=== PATIENT | female | born 1935 | race Caucasian/White ===

== ENCOUNTER 2019-09-27 12:32 | Emergency (ER) | payer MEDICARE ==
[~2019-09-27] VITALS: Ht 157.5 cm; Wt 74.8 kg
[2019-09-27 12:34] VITALS: BP_SYST 103
--- NOTE | 2019-09-27 12:35 | NUR ---
Patient to ER bed 4 to gown for evaluation. Side rails up.
--- NOTE | 2019-09-27 12:40 | NUR ---
Pt bib ambulance from home, per son pt was c/o back pain and cramping. Pt is confused but alert and oriented. V/S stable, afebrile. Resting in bed, will continue to monitor.
[2019-09-27] MEDS ORDERED: traMADol HCL HCL 50 MG TABLET (ULTRAM) PO ONE (13:00)
--- NOTE | 2019-09-27 13:09 | NUR ---
Pt medicated with tramadol as ordered, will re-assess
--- NOTE | 2019-09-27 13:15 | NUR ---
# 20 gauge angiocath placed to LFA. Use of asceptic technique. Opsite placed over site. Blood return noted. Blood for lab drawn from site. Flushed with 10 cc of normal saline. No evidence of infiltration noted. Patient tolerated well.
[2019-09-27] MEDS ORDERED: FENO160 PO (13:19)
[2019-09-27] MEDS ORDERED: [UNRECOGNIZED DRUG - OTHER] (13:19)
[2019-09-27] MEDS ORDERED: FOLI-43 PO (13:19)
[2019-09-27] MEDS ORDERED: LISI-600 PO (13:19)
[2019-09-27] MEDS ORDERED: PHOS100P3 MC (13:21)
[2019-09-27] MEDS ORDERED: TRAN650T5 PO (13:21)
--- NOTE | 2019-09-27 13:21 | NUR ---
Medication reconciliation completed with information provided by son. Any prior medication reconciliation on file was reviewed and corrected.
--- NOTE | 2019-09-27 13:30 | NUR ---
Radiology at bedside to perform cxr
[2019-09-27 13:31] LABS: BASOPHILS # (AUTO) 0.1 K/uL (0.0-0.2); BASOPHILS % (AUTO) 0.6 % (0.0-2.0); EOSINOPHILS # (AUTO) 0.2 K/uL (0.0-0.4); EOSINOPHILS % (AUTO) 1.7 % (0.0-4.0); HEMATOCRIT 36.8 % (36-48); LYMPHOCYTES % (AUTO) 20.5 % (20.5-51.5); MEAN CORPUSCULAR HEMOGLOBIN 28 pg (27-31); MEAN CORPUSCULAR HGB CONC 33 % (32-36); MEAN CORPUSCULAR VOLUME 87 fL (79.0-98.0); MONOCYTES # (AUTO) 0.8 K/uL (0.0-1.0); MONOCYTES % (AUTO) 8.1 % (1.7-9.3); NEUTROPHILS # (AUTO) 6.7 K/uL (1.8-7.7); NEUTROPHILS % (AUTO) 69.1 % (40.0-70.0); PLATELET COUNT (AUTO) 274 K/uL (130-430); RED BLOOD CELL COUNT(AUTO) 4.24 MIL/uL (4.2-6.2); RED CELL DISTRIBUTION WIDTH 15.1 % (9.0-15.0); WHITE BLOOD COUNT (AUTO) 9.6 K/uL (4.8-10.8)
[2019-09-27 13:57] LABS: ANION GAP 9 (5-15); CALCIUM 8.6 mg/dL (8.4-11.0); CHLORIDE 98 mmol/L (98-107); CREATININE 1.68 mg/dL (0.55-1.30); GLUCOSE 107 mg/dL (70-99); SODIUM SERUM 128 mmol/L (136-145); UREA NITROGEN, BLOOD 33 mg/dL (8-21)
[2019-09-27 14:02] LABS: ALANINE AMINOTRANSFERASE 25 U/L (12-78); ALBUMIN 3.2 g/dL (3.4-4.8); ASPARTATE AMINOTRANSFERASE 36 U/L (10-37); LIPASE 689 U/L (73-393); TOTAL BILIRUBIN 0.3 mg/dL (0.0-1.0)
--- NOTE | 2019-09-27 14:04 | NUR ---
Patient transported to radiology via GURNEY, accompanied by GUEST SERVICE TEAM LEADER.
--- NOTE | 2019-09-27 14:06 | NUR ---
PT RETURNED FROM CT
[2019-09-27] MEDS ORDERED: NACL 0.9% 1,000 ML IV ONE (14:15)
--- NOTE | 2019-09-27 14:38 | NUR ---
1L NS bolus infusing as ordered.
--- NOTE | 2019-09-27 15:20 | NUR ---
Urine collected via straight cath as ordered by . Pt tolerated well. Urine taken to lab for analysis.
[2019-09-27 15:23] VITALS: BP_SYST 108
[2019-09-27 15:42] LABS: BILIRUBIN,URINE NEGATIVE (NEGATIVE); BLOOD, URINE 2+ (NEGATIVE); CLARITY/URINE CLEAR (CLEAR); COLOR,URINE YELLOW (YELLOW); GLUCOSE,URINE NEGATIVE (NEGATIVE); KETONES,URINE NEGATIVE (NEGATIVE); LEUKOCYTE ESTERASE ,URINE NEGATIVE (NEGATIVE); NITRITE, URINE NEGATIVE (NEGATIVE); PROTEIN URINE 2+ (NEGATIVE); UROBILINOGEN,URINE 0.2 (0.2-1.0)
[2019-09-27 15:54] LABS: BACTERIA,URINE FEW /HPF (None Seen); COARSE GRANULAR CASTS,URINE 0-10 /LPF (None Seen); MUCUS,URINE 2+ /LPF (None Seen); RBC,URINE 20-50 /HPF (0-3)
== END 2019-09-27 15:23 | disposition home or self-care (01) ==
LOC: SED 12:32
DX: K80.50 Calculus of bile duct without cholangitis or cholecystitis without obstruction (principal); Z79.899 Other long term (current) drug therapy
CPT/HCPCS: 36415; 74176; 80053; 81000; 83690; 85025; 99284; J7030